=== PATIENT | male | born 1980 | race African-American/Black ===

== ENCOUNTER 2018-07-09 16:39 | Emergency (ER) | payer OTHER ==
[2018-07-09] MEDS ORDERED: DIPH/PERTUSS(ACELL)/TETANUS VAC/PF 0.5 ML SYR (>=10YO) IM ONE (17:34)
[2018-07-09] MEDS ORDERED: HYDROCODONE/ACETAMINOPHEN 5-325 MG TABLET PO ONE (17:34)
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
--- NOTE | 2018-07-09 18:04 | EKG REPORT ---
SEVERITY:- ABNORMAL ECG - SINUS RHYTHM LEFT VENTRICULAR HYPERTROPHY : Confirmed by: Susan Dailey MD 09-Jul-2018 18:04:04
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
[2018-07-09 18:44] VITALS: BP 128/89
== END 2018-07-09 18:44 | disposition home or self-care (01) ==
LOC: ER 16:39
DX: S01.81XA Laceration without foreign body of other part of head, initial encounter (principal); S01.512A Laceration without foreign body of oral cavity, initial encounter; S29.012A Strain of muscle and tendon of back wall of thorax, initial encounter; R07.89 Other chest pain; V49.50XA Passenger injured in collision with unspecified motor vehicles in traffic accident, initial encounter; Y93.84 Activity, sleeping; Y99.0 Civilian activity done for income or pay; F17.200 Nicotine dependence, unspecified, uncomplicated
CPT/HCPCS: 71046; 90471; 90715; 93005; 93010; 99284